=== PATIENT | female | born 1955 | race Two or more races ===

== ENCOUNTER 2024-10-20 17:55 | Emergency (ER) | payer BC, OTHER ==
[~2024-10-20] VITALS: Ht 154.9 cm; Wt 108.9 kg
[2024-10-20 19:19] LABS: EOSINOPHILS # (AUTO) 0.1 K/uL (0.0-0.7); EOSINOPHILS % (AUTO) 1.4 % (0.0-6.0); HEMATOCRIT 43 % (33-45); HEMOGLOBIN 14.2 g/dL (11.5-14.8); LYMPHOCYTES # (AUTO) 2.1 K/uL (0.8-4.8); LYMPHOCYTES % (AUTO) 47.8 % (20.0-44.0); MEAN CORPUSCULAR HEMOGLOBIN 27 PG (26.0-33.0); MEAN CORPUSCULAR HGB CONC 33 g/dl (31.0-36.0); MEAN CORPUSCULAR VOLUME 82 fL (82-100); MONOCYTES # (AUTO) 0.7 K/uL (0.1-1.30); NEUTROPHILS # (AUTO) 1.5 K/uL (1.8-8.9); NEUTROPHILS % (AUTO) 33.8 % (43.0-81.0); PLATELET COUNT (AUTO) 254 K/uL (150-450); RED BLOOD CELL COUNT(AUTO) 5.25 MIL/uL (4.0-5.2); RED CELL DISTRIBUTION WIDTH 16.1 % (11.5-15.0); WHITE BLOOD COUNT (AUTO) 4.4 K/uL (4.3-11.0)
[2024-10-20 19:34] LABS: CALCIUM, SERUM 8.6 mg/dL (8.5-10.1); CREATININE 1.2 mg/dL (0.6-1.3); POTASSIUM 3.5 mmol/L (3.5-5.1)
[2024-10-20] MEDS ORDERED: AZIT250T13 PO (22:31)
[2024-10-20] MEDS ORDERED: BENZ-13 PO (22:31)
[2024-10-20] MEDS ORDERED: AZITHROMYCIN 250 MG TABLET ONE (22:35)
[2024-10-20] MEDS: AZITHROMYCIN 250 MG TABLET PO ONE (22:37)
[2024-10-20 22:50] VITALS: BP 134/73; TEMP 97.9; O2SAT 99
== END 2024-10-20 22:50 | disposition home or self-care (01) ==
LOC: ER 17:55
DX: R05.9 Cough, unspecified (principal); J18.9 Pneumonia, unspecified organism; E11.9 Type 2 diabetes mellitus without complications; E78.5 Hyperlipidemia, unspecified; I10 Essential (primary) hypertension
CPT/HCPCS: 36415; 71045-TC; 80048-TC; 83880; 85025-TC